=== PATIENT | male | born 1950 | race Caucasian/White ===

== ENCOUNTER → 2018-03-22 | Outpatient (CLI) | payer OTHER ==
[~2018-03-22] MED LIST: ASPCH81 PO; CARV6.25 PO; LISI-726 PO; LPT40 PO; METF1TAB53 PO; NTRSLP4 SL; PRLSR20 PO; SYM100 PO
--- NOTE | 2018-03-22 12:41 | DIAGNOSTIC IMAGING REPORT ---
VIDEO SWALLOW HISTORY: History of prior aspiration. Follow-up examination. DYSPHAGIA TECHNIQUE: Video fluoroscopic evaluation of swallowing was performed in the AP and lateral projections by the speech pathology staff. The patient is fed nectar-thick and thin liquid barium, a barium coated wafer, and barium pudding. FLUOROSCOPY TIME: 2 minutes. NUMBER OF FLUOROSCOPY IMAGES: 0 COMPARISON STUDY: 02/22/2018 FINDINGS: The patient was administered thin liquid barium via a teaspoon. There is no aspiration. When swallowing via cup, there was penetration but no evidence of aspiration. When swallowing nectar thick liquids, there is no aspiration. When swallowing pudding there is no evidence for aspiration. When swallowing a cracker with paste there was no evidence for aspiration. Note is made of esophageal dysmotility. IMPRESSION: 1. Improved swallowing mechanics. Episode of penetration but no evidence of aspiration. 2. Please see the speech pathologist report for detailed findings and recommendations. Electronically signed by: Jm Leos M.D. 03/22/2018 12:40 PM Dictated Date/Time: 03/22/2018 12:35 PM
--- NOTE | 2018-03-23 13:18 | SWALLOWING EVALUATION ---
HISTORY: This 67 year old man was referred for a video swallow study at [facility] in order to rule out aspiration and identify the safest consistencies for optimal oral intake. The patient participated in a previous video swallow study on 02/23/18 (please refer to full report for details) as an inpatient due to swallowing difficulties s/p cardiac arrest/code arctic. Mild oral and moderate pharyngeal stage dysphagia reported, with SILENT aspiration of thin liquids. A dental soft diet with nectar thick liquids was recommended, along with continued dysphagia therapy at acute rehab. 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 Current diet is dental soft and nectar thick liquids. PROCEDURE: The patient was seen in the Radiology Department of [facility] for the VFSS. Cursory examination of the oral cavity revealed the patient to have natural upper and lower dentition in good condition. Strength and ROM of the articulators was wnl. Patient is impulsive. The patient was seated upright on a stool and was viewed in the Lateral and the Anterior-Posterior (A-P) planes. Volitional phonation exercises completed in the A-P plane revealed bilateral vocal fold movement. Vocal intensity was wnl. In the lateral plane, the patient was given the following boluses: 1 tsp. thin liquid barium x 2, single swallow thin liquid barium self-presented from a cup x2, serial swallows of thin liquid barium self-presented via straw, 1 tsp. nectar-thick liquid barium, single swallow nectar-thick liquid barium self-presented from a cup, 1 tsp. barium pudding, and 1 club cracker coated in barium pudding. The patient was then repositioned into the A-P plane and given the following boluses: 1 tsp. nectar thick barium, and 1 tsp. barium pudding. RESULTS: Oral Stage: Lip closure was adequate. The patient was able to maintain a cohesive liquid bolus in the oral cavity during the liquid bolus hold task. Mastication was timely and efficient. Lingual motion for bolus transport was slowed. There was retention lining the tongue and palate after the initial swallow. The initiation of the pharyngeal swallow was delayed and occurred when the bolus head reached the valleculae. Pharyngeal Stage: Soft palate elevation was complete. Laryngeal elevation revealed partial superior movement of the thyroid cartilage and partial approximation of the arytenoids to the epiglottic base. Anterior hyoid excursion was partially reduced and epiglottic deflection was complete. Laryngeal vestibular closure was in-complete with a narrow column of contrast being located in the vestibule at the height of the swallow. The pharyngeal stripping wave was present and complete. Pharyngeal contraction was complete. There was partial distention and duration of the opening to the pharyngoesophageal segment (PES). Tongue base retraction was partially reduced with a narrow column of contrast located between the tongue base and pharyngeal wall during the swallow. There was mild retention located in the valleculae and pyriforms after the swallow. Significant improvement noted for this study. There was laryngeal penetration of thin liquids when taken via cup and straw. There was NO ASPIRATION evidenced with any consistency for the remainder of the study. Retention mostly cleared with a second swallow. Esophageal stage: There was retention in the mid esophagus with retrograde flow through the PES. A liquid wash assisted to clear this. All of the above are suggestive of esophageal dysmotility and reflux. SUMMARY/RECOMMENDATIONS: This patient presents with mild oropharyngeal dysphagia. He presents with s/s of esophageal dysfunction. The following is recommended: 1. Regular diet, moist. 2. Aspiration and GERD precautions: FULLY UPRIGHT for meals and for 30 minutes after meals; head of bed at least 30-degrees at all times. No straws. 3. Safe swallow strategies: Alternate solids and liquids. 4. Follow up with PCP. Consider a GI consultation for management for esophageal dysfunction (medication adjustments, further testing as needed) as appropriate. A summary of the results and recommendations was discussed with the patient immediately following the study with verbal understanding. Thank you for referral of this patient. Please contact me at if any additional information is needed.
== END | disposition home or self-care (01) ==
LOC: C.RAD 10:52
PROVIDERS: ATTEND Family Medicine
DX: R13.12 Dysphagia, oropharyngeal phase (principal)

== ENCOUNTER 2021-05-09 09:48 | Observation (INO) ==
[~2021-05-09 09:48] MED LIST changes: -ASPCH81 PO; -CARV6.25 PO; +LIDOCAINE 1% LOCAL 20 ML VIAL ONE; -LISI-726 PO; -LPT40 PO; -METF1TAB53 PO; -NTRSLP4 SL; -PRLSR20 PO; -SYM100 PO; +VANCOMYCIN HCL 1000MG/20ML VIAL ONE; +WATER, STERILE FOR INJ 10 ML VIAL ONE
[2021-05-09] MEDS ORDERED: BUPIVACAINE 0.25% 30 ML VIAL ONE (09:49)
[2021-05-09] MEDS ORDERED: MIDAZOLAM HCL 5 MG/ML 1 ML VIAL ONE (10:35)
[2021-05-09] MEDS ORDERED: fentaNYL citrate 100 MCG/2 ML VIAL ONE (10:35)
--- NOTE | 2021-05-09 10:36 | Pre Anesthesia Assessment ---
Date of Service May 09, 2021 Pre Sedation Assessment Vital Signs Temp Pulse Resp BP Pulse Ox 05/09/21 10:00 36.7 C 67 20 148/89 H 97 Cardiovascular + regular rate and + regular rhythm Respiratory + respiratory effort normal Pre-Sedation Airway Assessment Smoking Status: Former smoker Hx Sleep Apnea: No Hx Difficult Intubation: No Short, Thick Neck: No Thyromental Distance: > or= 3.5 Finger Breadths Oral Cavity: + WNL Mallampati Class: III ASA: ASA3 Procedure Planning Contraindications for Sedation: none Current Medications Reviewed: Yes Notes The planned sedation has been discussed with the patient. Informed Consent was obtained. I have identified the patient, determined the appropriateness of sedation and have assessed the patient immediately prior to the procedure. All medicine(s) and interventions are by my order.
--- NOTE | 2021-05-09 10:40 | History & Physical Report ---
Date of Service May 09, 2021 Assessment & Plan (1) Ischemic cardiomyopathy: Plan: Patient with NYHA class II sx and optimal medical therapy. Persistently low EF. No PA or revascularization in the past 90 days. Narrow complex QRS (No SENIOR LABEL SPECIALIST). No pacing indication. Plan single chamber ICD. Discussed with patient left versus right-sided implant. We decided Left was acceptable. History of Present Illness Chief Complaint: Cardiomyopathy Primary Care Provider: Dayday Mchugh Patient with a history of cardiac arrest and LAD infarct in 2018. Continues to have reduced LV function despite medical therapy. SOme symptoms of CHF (NYHA class II). Allergies Allergy/AdvReac Type Severity Reaction Status Date / Time No Known Allergies Allergy Unverified 02/13/18 00:52 Home Medications Medication Instructions Recorded Confirmed Type OMEPRAZOLE (PRILOSEC) 20 mg PO DAILY #0 cap 02/13/18 05/09/21 History ATORVASTATIN (LIPITOR) 1 tab PO DAILY #30 tab 02/24/18 05/09/21 Rx Aspirin (Aspirin Low Strength) 81 mg PO QAM #1 tab 02/24/18 05/09/21 Rx CARVEDILOL (COREG) 1 tab PO BID 30 Days #60 tab 02/24/18 05/09/21 Rx amlodipine 10 mg tablet 10 mg PO DAILY 05/09/21 05/09/21 History famotidine 20 mg tablet 20 mg PO DAILY 05/09/21 05/09/21 History furosemide 20 mg tablet 20 mg PO Q OTHER DAY 05/09/21 05/09/21 History glimepiride 1 mg tablet 1 mg PO BID 05/09/21 05/09/21 History omega-3 fatty acids 1,000 mg PO DAILY 05/09/21 05/09/21 History sacubitril 97 mg-valsartan 103 mg 1 tab PO BID 05/09/21 05/09/21 History tablet (Entresto) Past Med/Surg History Social History Smoking Status: Former smoker Hx Alcohol Use: No Hx Substance Use: No Beliefs That Will Affect Care: None Current Living Situation: Spouse Feels Safe at Home: Yes Safety Concerns: Feels Safe At This Time Assistive Devices: None Review of Systems Review of Systems: no recent f/c Physical Exam Physical Exam: Alert. Oriented. Answered questions appropriately Normal respiratory effort Regular rhythm Well-perfused Results & Data Results & Data ([facility]) Vital Signs (Past 12 Hours) Vital Signs Temp Pulse Resp BP Pulse Ox 05/09/21 10:00 36.7 C 67 20 148/89 H 97 Diagnostic Findings Echo , EF 30-35%
[2021-05-09] MEDS ORDERED: oxyCODONE HCL IR 5 MG TAB (IMMEDIATE RELEASE) PO PRN (11:23)
--- NOTE | 2021-05-09 11:23 | Post Anesthesia Assessment ---
Date of Service May 09, 2021 Post Sedation Assessment Vital Signs Temp Pulse Resp BP Pulse Ox 05/09/21 10:00 36.7 C 67 20 148/89 H 97 Recovery Score Activity: Moves 4 extremities Respiration: Deep Breath/Cough Circulation: +/-20% PreAnes Value Consciousness: Fully Awake Oxygen Saturation: > 92% On Room Air Discharge Sedation Level of Care: Fast Track Phase II Post Sedation Plan On clinical assessment, the patient appears to have tolerated the sedation without complications. Patient is recovering as anticipated. Patient will continue to be monitored by nursing and may be discharged when sedation discharge criteria are met per below protocol. Upon Completions of procedure up to 15 minutes continue every 5 minute vital signs and the P.A.R. score; then discharge to a Phase I or Fast Track to Phase II per the following guidelines: * Discharge Patient to appropriate Phase II area if PAR is 8 or greater or return to pre- procedure baseline. The post - procedure orders will be as directed. * If PAR score is less than 8 or not return to pre-procedure baseline then patient will follow Phase I monitoring till PAR is reached for Phase II. The Phase I may be done in procedure room or may call to secure a Phase I area. * If naloxone or flumazenil are used for reversal, hold in Phase I for continued monitoring from when last reversal dose was given for a minimum of 60 minutes or longer pending the nurse and/or physician discretion of patient condition before discharge to Phase II. Please call the Sedation Physician to re-evaluate and complete post-note for discharge to Phase II area. Do NOT discharge from procedure sedation or Phase 1 until post- sedation evaluation note is complete by procedure /sedation MD Sedation Discharge Instructions to be given to the patient at discharge to home.
--- NOTE | 2021-05-09 11:23 | Electrophysiology Report ---
Date of Service May 09, 2021 Electrophysiology Procedure Electrophysiology Procedure Report Procedure performed: Implantation of single-chamber ICD Staff cask maker: Matheus Rangel MD Indication: The patient is a 70-year-old gentleman with a history of an ischemic cardiomyopathy and persistently low ejection fraction less than 35%. He has [place] Heart [employer] class II symptoms. Has not had revascularization in the last 90 days nor suffered a myocardial infarction in the past 40 days. He has an anticipated longevity greater than 1 year and is on optimal medical therapy. He was therefore thought to be a good candidate for ICD as primary prevention against sudden cardiac . Procedure in detail: The patient was informed of the risks benefits and alternatives to the intended procedure and she wished to proceed. He was taken to the electrophysiology s uite in a fasting state. A preoperative antibiotic had been administered. The patient was monitored electrocardiographically throughout today's procedure and conscious sedation was administered per protocol. The left upper pectoral area is prepped and draped in usual sterile fashion. This area was anesthetized using subcutaneous administration of a xylocaine solution. An incision was made at t his site and carried down to the prepectoralis fascia using sharp dissection. Electrocautery was also employed for dissection as well as for hemostasis. A device pocket was fashioned tissues above the pectoralis muscle. Subsequent to this maneuver the left axillary vein was accessed using modified Seldinger technique. A sheath was placed over a guidewire at this site and used to facilitate passage of the pacing lead to the right ventricular apex under fluoroscopic guidance. Adequate sensing and threshold parameters were obtained prior to Active fixation of the lead to the endocardial surface. The proximal portion of the lead was then sutured the prepectoral fascia using nonabsorbable suture. The device pocket was irrigated with antibiotic solution. The lead was then attached to the device. The device and lead were then placed in the pocket and pocket was closed in 3 layers of absorbable suture. Steri-Strips and sterile dressing were applied. The device was tested noninvasively prior to conclusion the procedure. The patient tolerated procedure well there no immediate complications. Equipment used: New pulse generator: Women'S Studies Lecturer Fanmode. Model number: [id number] [id number] Right ventricular lead: Women'S Studies Lecturer MedDomee. Model number: [id number] serial number [id number] Measured data: Right ventricular lead: R waves measured 13.8 mV. Pacing threshold was 0.8 V at 0.5 ms with a pacing impedance of 722 ohms Impression: Successful implantation of single-chamber ICD MNPG Electrophysiology codes ICD Procedure 1: ICD: 84715 Insert single or dual ICD system PG Moderate Sedation Codes Moderate Sedation Codes Procedure 1: Sedation/Anesthesia: 25824 Mod Sedation by the same physician;Init15 Min Child Age 5 & Up Procedure 2: Sedation/Anesthesia: 38840 Mod Sedation by the same physician; Ea [id number] Minutes
[2021-05-09] MEDS: ceFAZolin 1000MG 1,000 MG/7.5 ML SYR IV SCH (19:34)
[2021-05-09] MEDS: SACUBITRIL-VALSARTAN 97-103 MG TAB PO SCH (21:28)
[2021-05-09] MEDS: GLIMEPIRIDE 2 MG TAB PO SCH (21:28)
[2021-05-09] MEDS: carvediloL 6.25 MG TAB PO SCH (21:28)
[2021-05-09] MEDS: ACETAMINOPHEN 325 MG TAB PO PRN (23:04)
[2021-05-10] MEDS: ceFAZolin 1000MG 1,000 MG/7.5 ML SYR IV SCH (03:58)
[2021-05-10] MEDS ORDERED: FAMOTIDINE 20 MG TAB PO SCH (09:00)
[2021-05-10] MEDS ORDERED: amLODIPine BESYLATE 5 MG TAB PO SCH (09:00)
[2021-05-10] MEDS ORDERED: OMEGA-3 (PURIFIED FISH OIL) 1 GM CAP PO SCH (09:00)
[2021-05-10] MEDS ORDERED: PANTOprazole 40 MG TAB PO SCH (09:00)
[2021-05-10] MEDS ORDERED: ATORVASTATIN 40 MG TAB PO SCH (09:00)
[2021-05-10] MEDS ORDERED: ASPIRIN 81 MG ECTAB PO SCH (09:00)
[2021-05-10] MEDS: GLIMEPIRIDE 2 MG TAB PO SCH (09:13)
[2021-05-10] MEDS: carvediloL 6.25 MG TAB PO SCH (09:14)
[2021-05-10] MEDS: SACUBITRIL-VALSARTAN 97-103 MG TAB PO SCH (09:14)
--- NOTE | 2021-05-10 09:15 | XRay Report ---
XR chest 2V PA/lateral HISTORY: 70 years-old Male EXACT TIME ORDERED Evaluate for pneumothorax and l status post placement of a left subclavian pacer COMPARISON: Chest radiographs 08/15/2019 TECHNIQUE: PA and lateral views of the chest FINDINGS: Cardiomediastinal and hilar silhouettes are within normal limits. Single lead left subclavian pacer/A ICD. No pneumothorax, pleural effusion or overt pulmonary edema. Minimal chronic interstitial coarsen ing is similar to comparison. Surgical clips project over the upper abdomen. Degenerative changes of the shoulders and spine. IMPRESSION: Status post placement of a left subclavian AICD. No postprocedural pneumothorax. ACT 112: Negative or not required by law. The above report was generated using voice recognition software. It may contain grammatical, syntax o r spelling errors. Electronically signed by: Jun Maharaj M.D. 05/10/2021 9:14 AM
[2021-05-10] MEDS: ACETAMINOPHEN 325 MG TAB PO PRN (09:22)
--- NOTE | 2021-05-10 11:11 | Discharge Summary ---
Date of Service May 10, 2021 Admission HPI Per Admitting Provider Patient with a history of cardiac arrest and LAD infarct in 2018. Continues to have reduced LV function despite medical therapy. SOme symptoms of CHF (NYHA class II). Principal Diagnosis cardiomyopathy Discharge Data Allergies Allergy/AdvReac Type Severity Reaction Status Date / Time No Known Allergies Allergy Unverified 02/13/18 00:52 Procedures Performed Operation Date: 05/09/21 11:00 Actual Procedures p ICD Insertion Single or Dual - Everett Rangel MD Ordered Studies 05/09/21 07:08 CL Cath Imgs for PACS use only Routine Hospital Course (1) Ischemic cardiomyopathy: on the day of admission the patient underwent implantation of a single- chamber Medtronic ICD. The procedure was uncomplicated. The following morning device interrogation revealed normal function of the lead and device. Chest x- ray demonstrated good lead position without evidence of pneumothorax. Total Time Total Time Spent Total Time Spent (In Minutes): 20 Discharge Plan Discharge Items Patient Disposition: Home - Self-Care Reason For Visit: Ischemic Cardiomyopathy Discharge Diagnosis: cardiomyopathy Condition on Discharge: Good Activity: Per Instructions section Activity Comment: No lifting left arm above shoulder behind neck for 6 weeks Lifting: No more than 10 pounds Bathing: Keep incision dry Bathing Comment: Keep wound dry Steri-Strips intact for 7 days Driving/Machine Use: Resume 1 day after discharge Non-emergency contact: Corner Former Call non-emergency contact if: you have any medication questions, your pain is worsening, you have a fever, your wound has increased redness and your wound has increased drainage Follow-up/Referrals: Dayday Mchugh, D.O. [Primary Care Provider] - 05/15/21 2:00 pm Diet: Carb Consistent or DM2 and Heart Healthy Addtl Attending Provider Instructions: None Pending Studies at Discharge: No Stand-Alone Forms: My [facility], Smoking Cessation Medications and DC Order Prescriptions: Continued OMEPRAZOLE (PRILOSEC) 20 MG CONTR REL CAP 20 mg PO DAILY Qty: 0 RF: 0 ATORVASTATIN (LIPITOR) 40 MG tablet 1 tab PO DAILY Qty: 30 RF: 0 Aspirin (Aspirin Low Strength) 81 MG CHEWABLE TAB 81 mg PO QAM Qty: 1 RF: 0 CARVEDILOL (COREG) 6.25 MG tablet 1 tab PO BID 30 Days Qty: 60 RF: 5 glimepiride 1 mg Tablet 1 mg PO BID RF: 0 famotidine 20 mg Tablet 20 mg PO DAILY RF: 0 amlodipine 10 mg Tablet 10 mg PO DAILY RF: 0 furosemide 20 mg Tablet 20 mg PO Q OTHER DAY RF: 0 omega-3 fatty acids Capsule 1,000 mg PO DAILY RF: 0 Entresto 97-103 mg Tablet 1 tab PO BID RF: 0 Discharge Orders: Discharge Order (Routine); Ordered 05/10/21 Ordered By: Everett Rangel Admission Data Admit Date/Time: 05/09/21 11:19 Attending Provider: Everett Rangel Admit Provider: Everett Rangel Primary Care Provider: Dayday Mchugh Other Interventions: Discharge Summary Assessment (RN) Last Done: 05/10/21 10:40 Coding Level of Care Code 62338 OBS Care - Discharge Diagnoses Ischemic cardiomyopathy I25.5
[2021-05-11] MEDS ORDERED: FUROSEMIDE 20 MG TAB PO SCH (09:00)
== END 2021-05-10 11:30 | disposition home or self-care (01) ==
LOC: EP 09:48 → 1E 09:48
PROC: EPB.ICD (2021-05-09 11:00)

== ENCOUNTER 2025-03-24 06:35 | Inpatient (IN) ==
--- NOTE | 2025-03-24 06:59 | Emergency Department Note ---
Impression & Plan Pain and swelling of right lower leg, Calf pain ED Provider Note NAME: JULIETA WALTON AGE: 74 SEX: M : 1950 ARRIVES VIA: Walk-In INFORMANT: Patient ED PROVIDER(S): Saran Mcmillan DO CHIEF COMPLAINT: Right calf pain HPI: Patient is a 74-year-old male with a past medical history of ischemic cardiomyopathy, diabetes and vocal cord dysfunction who presents to the ER for right calf pain. He notes this initially started on Thursday. He was seen evaluated and had ultrasounds done and placed on Eliquis on Thursday. He has been taking 5 mg twice a day. He notes he has a severe increase in pain. He has been sitting up in bed keeping it elevated. He has been able to walk. He notes it is very tight. Severe pain from the knee down posteriorly. He admits to tingling. ADDITIONAL HISTORY OBTAINED: Per HPI Chronic Medical/Social Conditions Affecting Care: Per HPI PAST MEDICAL HISTORY:See Below PAST SURGICAL HISTORY:See Below FAMILY HISTORY:See Below SOCIAL HISTORY:See Below HOME MEDICATIONS:See Below ALLERGIES:See Below VITALS:See Below PHYSICAL EXAMINATION: GENERAL: Sitting up in bed, alert, well appearing, well nourished, no distress, non-toxic EYE EXAM: normal conjunctiva. OROPHARYNX: no exudate, no erythema, lips, buccal mucosa, and tongue normal and mucous membranes are moist NECK: supple, no nuchal rigidity, no adenopathy, non-tender LUNGS: Clear to auscultation. Normal chest wall mechanics HEART: no murmurs, S1 normal and S2 normal ABDOMEN: abdomen soft, non-tender, normo-active bowel sounds, no masses, no rebound or guarding. UPPER EXTREMITIES: upper extremities are grossly normal. LOWER EXTREMITIES: Flexion-extension right hip is intact. Severe pain with minimal flexion/extension of the knee and the calf. DP and PT difficult to appreciate with significant mount of swelling. Calf and foot are edematous and taut. NEURO EXAM: Normal sensorium, cranial nerves II-XII grossly intact, normal speech, no gross weakness of arms, no gross weakness of legs. MEDICAL DECISION MAKING: Patient is a 74-year-old male who presents ER for above-stated complaint. IV was established blood work was obtained. Labs show no significant leukocytosis or anemia. BMP with a creatinine of 1.6. LFTs and bilirubin is unremarkable. CK at 123. On exam he has a very taut calf and severe pain with faint plantar dorsiflexion. Unable to appreciate DPs and PTs. He does have paresthesias. Ultrasound was obtained and suggested either a ruptured popliteal cyst or hematoma. Unable to visualize the clot and I discussed these findings with Dr. Mcdowell. I discussed with Dr. Santiago from orthopedics and patient was evaluated by Antolin ROQUE as there was concern for compartment syndrome. they do not feel this consistent with compartment syndrome. I then discussed case with the hospitalist for admission. Ortho did note that blood thinner could be stopped at this time. Patient has not taken any Eliquis today. Patient was given several doses of morphine. Discussed case with hospitalist for further evaluation management treatment. Arterial ultrasound was done several hours later and did so some diminished flow through the [employer]. This was done after the patient was already admitted. Consults/Care Managements Discussions: Per [facility] Triage Nursing notes reviewed. Limited review of prior medical records performed Vital Signs: reviewed and remarkable for no significant abnormalities Differential diagnosis: DVT, musculoskeletal, infection, joint effusion, trauma, lymphedema, idiopathic, CHF, as well as other pathologies. ER treatment provided: See below Diagnostics interpreted by me include EKG and cardiac monitoring as listed below: -ECG: none -Laboratory studies:Interpreted by me as stated above in MDM and shown below. Imaging studies: Xrays: As interpreted by me:none CTs show: None Ultrasound as described above Procedures:none Critical Care: None Past Med/Surg History Problem List (Updated 03/24/25 @ 12:51 by Saran Mcmillan DO) Calf pain (Acute) Pain and swelling of right lower leg (Acute) Ischemic cardiomyopathy Diabetes mellitus (Chronic) Palliative care encounter Vocal cord dysfunction "Evaluation by Dr. Taylor 02/20/2018" Social History Smoking Status: Former smoker Hx Alcohol Use: No Hx Substance Use: No Preferred Language: Hungarian Beliefs That Will Affect Care: None Current Living Situation: Spouse Feels Safe at Home: Yes Assistive Devices: None Allergies Allergies Allergy/AdvReac Type Severity Reaction Status Date / Time No Known Allergies Allergy Unverified 03/24/25 10:33 Home Meds Home Medications Medication Instructions Recorded Confirmed amlodipine 10 mg tablet 10 mg PO DAILY 05/09/21 03/24/25 famotidine 20 mg tablet 20 mg PO DAILY 05/09/21 03/24/25 furosemide 20 mg tablet 20 mg PO [id number] 05/09/21 03/24/25 glimepiride 1 mg tablet 1 mg PO DAILY 05/09/21 03/24/25 sacubitril 97 mg-valsartan 103 mg 1 tab PO BID 05/09/21 03/24/25 tablet (Entresto) apixaban 5 mg tablet (Eliquis) 5 mg PO BID 03/24/25 03/24/25 aspirin 81 mg tablet,delayed 81 mg PO DAILY 03/24/25 03/24/25 release atorvastatin 40 mg tablet 40 mg PO DAILY 03/24/25 03/24/25 carvedilol 12.5 mg tablet 12.5 mg PO BID 03/24/25 03/24/25 dapagliflozin propanediol 10 mg 10 mg PO DAILY 03/24/25 03/24/25 tablet (Farxiga) omega 9-ncs-jdd-fish oil 900 1 cap PO DAILY 03/24/25 03/24/25 mg-1,400 mg capsule,delayed release pantoprazole 40 mg tablet,delayed 40 mg PO DAILY 03/24/25 03/24/25 release semaglutide 7 mg tablet (Rybelsus) 7 mg PO DAILY 03/24/25 03/24/25 tramadol 50 mg tablet 50 - 100 mg PO Q6H PRN Pain 03/24/25 03/24/25 Results & Data (ED) Vital Signs Vital Signs - 24 hr 03/24/25 06:42 03/24/25 07:21 03/24/25 07:24 Temperature 36.5 C Temperature Source Temporal Artery Scan Pulse Rate 78 72 Pulse Rate from SpO2 Sensor Respiratory Rate 20 18 Respiratory Depth Normal Blood Pressure 114/81 153/90 H Blood Pressure Mean 92 112 Pulse Oximetry 95 Oxygen Delivery Method Room Air Sepsis Recent Fever Within 48 Hours No Sepsis New/Unexplained Change in Mental Status N/A Sepsis Action Taken by Nursing No Action Required 03/24/25 07:30 03/24/25 07:48 03/24/25 08:00 Temperature Temperature Source Pulse Rate 68 Pulse Rate from SpO2 Sensor 68 Respiratory Rate Respiratory Depth Blood Pressure 124/68 146/84 H Blood Pressure Mean 77 109 Pulse Oximetry 90 Oxygen Delivery Method Room Air Sepsis Recent Fever Within 48 Hours Sepsis New/Unexplained Change in Mental Status Sepsis Action Taken by Nursing 03/24/25 08:03 03/24/25 08:10 03/24/25 08:18 Temperature Temperature Source Pulse Rate 67 68 65 Pulse Rate from SpO2 Sensor 67 65 Respiratory Rate 12 14 Respiratory Depth Blood Pressure Blood Pressure Mean Pulse Oximetry 91 91 Oxygen Delivery Method Room Air Room Air Sepsis Recent Fever Within 48 Hours Sepsis New/Unexplained Change in Mental Status Sepsis Action Taken by Nursing 03/24/25 08:30 03/24/25 08:45 03/24/25 08:48 Temperature Temperature Source Pulse Rate 65 65 Pulse Rate from SpO2 Sensor 65 64 Respiratory Rate 12 Respiratory Depth Blood Pressure 159/93 H Blood Pressure Mean 112 Pulse Oximetry 93 94 Oxygen Delivery Method Room Air Room Air Sepsis Recent Fever Within 48 Hours Sepsis New/Unexplained Change in Mental Status Sepsis Action Taken by Nursing 03/24/25 09:00 03/24/25 09:03 03/24/25 09:24 Temperature Temperature Source Pulse Rate 64 67 Pulse Rate from SpO2 Sensor 58 L 67 Respiratory Rate 12 16 Respiratory Depth Blood Pressure 141/83 H Blood Pressure Mean 95 Pulse Oximetry 92 95 Oxygen Delivery Method Room Air Room Air Sepsis Recent Fever Within 48 Hours Sepsis New/Unexplained Change in Mental Status Sepsis Action Taken by Nursing 03/24/25 09:30 03/24/25 09:33 03/24/25 10:18 Temperature Temperature Source Pulse Rate 66 70 Pulse Rate from SpO2 Sensor 66 Respiratory Rate 15 21 Respiratory Depth Blood Pressure 153/90 H Blood Pressure Mean 120 Pulse Oximetry 95 Oxygen Delivery Method Room Air Sepsis Recent Fever Within 48 Hours Sepsis New/Unexplained Change in Mental Status Sepsis Action Taken by Nursing 03/24/25 10:33 03/24/25 12:17 Temperature Temperature Source Pulse Rate 72 65 Pulse Rate from SpO2 Sensor Respiratory Rate 20 Respiratory Depth Blood Pressure Blood Pressure Mean Pulse Oximetry Oxygen Delivery Method Sepsis Recent Fever Within 48 Hours Sepsis New/Unexplained Change in Mental Status Sepsis Action Taken by Nursing Laboratory Data 03/24/25 07:23 03/24/25 07:23 Lab Results 03/24/25 Range/Units 07:23 WBC 8.76 (4.8-10.8) K/ul RBC 4.49 L (4.70-6.10) M/uL Hgb 13.8 L (14.0-18.0) g/dl Hct 40.1 L (42.0-52.0) % MCV 89.3 (80.0-100.0) fL MCH 30.7 (25.0-34.0) pg MCHC 34.4 (32.0-36.0) g/dL RDW Std Deviation 40.2 (36.4-46.3) fL RDW Coeff of Jeff 12.2 (11.5-14.5) % Plt Count 154 (130-400) K/uL MPV 10.2 (9.4-12.4) fL Immature Gran % (Auto) 0.6 % Neut % (Auto) 77.8 % Lymph % (Auto) 9.8 % [place] % (Auto) 11.2 % Eos % (Auto) 0.3 % Baso % (Auto) 0.3 % Neut # (Auto) 6.81 H (1.40-6.50) K/uL Lymph # (Auto) 0.86 L (1.20-3.40) K/uL [place] # (Auto) 0.98 H (0.11-0.59) K/uL Eos # (Auto) 0.03 (0.00-0.50) K/uL Baso # (Auto) 0.03 (0.00-0.20) K/uL Immature Gran # (Auto) 0.05 (0.01-0.20) K/uL Sodium 138 (136-145) mmol/L Potassium 4.2 (3.5-5.1) mmol/L Chloride 106 (98-107) mmol/L Carbon Dioxide 23 (21-32) mmol/L Anion Gap 9 (3-11) BUN 26 H (6-23) mg/dl Creatinine 1.66 H (0.6-1.4) mg/dl Est Cr Clr Drug Dosing 49.4 ml/min eGFR 43.53 BUN/Creatinine Ratio 15.7 (10-20) Glucose 161 H (70-99(Fasting)) mg/dl Calcium 8.9 (8.6-10.3) mg/dl Total Bilirubin 0.8 (0.2-1.0) mg/dl AST 15 (13-39) U/L ALT 14 (7-52) U/L Alkaline Phosphatase 68 (34-104) U/L Total Creatine Kinase 123 (30-223) U/L Total Protein 6.7 (6.0-8.3) gm/dl Albumin 3.6 (3.4-5.0) gm/dl Globulin 3.1 (2.5-4.0) gm/dl Albumin/Globulin Ratio 1.2 (0.9-2) Administered Medications Discontinued Medications Morphine Sulfate (Morphine Sulfate 4 Mg/Ml 1 Ml Carp\\Vial) 3 mg IV NOW STA Stop: 03/24/25 07:00 Last Admin: 03/24/25 07:24 Dose: 3 mg Documented By: RUDI Morphine Sulfate (Morphine Sulfate 4 Mg/Ml 1 Ml Carp\\Vial) 4 mg IV NOW STA Stop: 03/24/25 10:27 Last Admin: 03/24/25 11:02 Dose: 4 mg Documented By: RUDI Imaging Data Radiologist's Impression: Duplex Scan Lower Extremity Artery 03/24/25 06:58 RIGHT LOWER EXTREMITY ARTERIAL DOPPLER ULTRASOUND CLINICAL HISTORY: Severe pain and swelling. COMPARISON STUDY: Right lower extremity venous Doppler ultrasound March 20, 2025. TECHNIQUE: Color and duplex Doppler sonography of the arterial system of the right lower extremity was performed. FINDINGS: There is triphasic flow within the right common femoral, superficial femoral and popliteal veins. Of note, there is monophasic flow with apparent reversal of diastolic flow within the proximal right posterior tibial artery. There is also monophasic flow within the right peroneal artery. There is triphasic flow within the distal right posterior tibial artery. There is biphasic flow within the right anterior tibial and dorsalis pedis vessels. The largest right calf fluid collection is depicted on the venous exam which will be reported separately. No elevated velocities were identified. IMPRESSION: Patent right lower extremity vessels. However, monophasic flow with absent/reversed diastolic flow within portions of the right posterior tibial and peroneal arteries. This vascular finding is nonspecific although could be related to the large right calf hematoma and could be seen in setting of compartment syndrome. Clinical correlation is recommended. ACT 112: Negative or not required by law. Electronically signed by: Higinio Mcdowell M.D. 03/24/2025 12:02 PM Venous Doppler Study 03/24/25 06:58 RIGHT LOWER EXTREMITY VENOUS DOPPLER CLINICAL HISTORY: Right lower extremity pain. COMPARISON STUDY: Right lower extremity venous Doppler ultrasound March 20, 2025. TECHNIQUE: Sonography of the deep venous system of the right lower extremity was performed. Compression and augmentation were evaluated. FINDINGS: The right common femoral, superficial femoral and popliteal veins were compressible. Augmentation was normal. Flow was shown within the deep calf vessels. No superficial thrombus is identified within the right lower extremity. Note is now made of a large complex hypoechoic fluid collection of the right calf which extends from the level of the knee to ankle, measuring 20 x 4 x 9 cm. This hematoma was not evident on prior ultrasound. A popliteal cyst was shown on prior study. IMPRESSION: 1. No evidence of deep venous thrombus within the right lower extremity. 2. Large complex fluid collection of the right calf, measuring 20 x 4 x 9 cm, which has developed since prior exam. This is consistent with a hematoma or hemorrhage within a popliteal cyst, possibly ruptured. Findings discussed with Dr. Mcmillan at time of dictation. This could be correlated with clinical evidence for compartment syndrome. ACT 112: Negative or not required by law. Electronically signed by: Higinio Mcdowell M.D. 03/24/2025 10:14 AM Discharge Plan Visit Data Chief Complaint: Swelling/Edema to Extremity Stated Complaint: leg swelling and vein pain ED Provider: Saran Mcmillan Discharge Problem: Pain and swelling of right lower leg, Calf pain Condition: Fair Prescriptions Prescriptions: No Action glimepiride 1 mg Tablet 1 mg PO DAILY famotidine 20 mg Tablet 20 mg PO DAILY amlodipine 10 mg Tablet 10 mg PO DAILY furosemide 20 mg Tablet 20 mg PO [id number] Patient Comments: Mon/Thu/Thu Rx Instructions: Mon/Thu/Fri Entresto 97-103 mg Tablet 1 tab PO BID atorvastatin 40 mg tablet 40 mg PO DAILY carvedilol 12.5 mg tablet 12.5 mg PO BID aspirin 81 mg Tablet,Delayed Release (Dr/Ec) 81 mg PO DAILY tramadol 50 mg tablet 50 - 100 mg PO Q6H PRN (Reason: Pain) pantoprazole 40 mg tablet,delayed release (DR/EC) 40 mg PO DAILY [place] 3 Fish Oil 900-1,400 mg Capsule,Delayed Release(Dr/Ec) 1 cap PO DAILY Eliquis 5 mg tablet 5 mg PO BID dapagliflozin propanediol [Farxiga] 10 mg tablet 10 mg PO DAILY Rybelsus 7 mg tablet 7 mg PO DAILY Discharge Problem: Calf pain Qualifiers: Laterality: right Qualified Code(s): M79.661 - Pain in right lower leg
[2025-03-24] MEDS: MoRPHine SULFATE 4 MG/ML 1 ML CARP\\VIAL IV STA ×2 (07:24→11:02)
[2025-03-24 07:36] LABS: Hematocrit (blood only) 40.1 % (42.0-52.0); Hemoglobin 13.8 g/dl (14.0-18.0); Immature Granulocytes # (auto) 0.05 K/uL (0.01-0.20); Immature Granulocytes % (auto) 0.6 %; Mean Corpuscular Hemoglobin 30.7 pg (25.0-34.0); Mean Corpuscular Volume 89.3 fL (80.0-100.0); Platelet Count 154 K/uL (130-400); RDW Standard Deviation 40.2 fL (36.4-46.3); Red Blood Count 4.49 M/uL (4.70-6.10); White Blood Count 8.76 K/ul (4.8-10.8)
[2025-03-24 07:55] LABS: Alanine Aminotransferase 14.0 U/L (7-52); Albumin Globulin Ratio 1.2 (0.9-2); Alkaline Phosphatase 68.0 U/L (34-104); Anion Gap 9.0 (3-11); Bilirubin,Total 0.8 mg/dl (0.2-1.0); Blood Urea Nitrogen 26.0 mg/dl (6-23); Calcium 8.9 mg/dl (8.6-10.3); Carbon Dioxide 23.0 mmol/L (21-32); Chloride 106.0 mmol/L (98-107); Creatine Kinase 123.0 U/L (30-223); Creatinine Clr Calc Pharmacy 49.4 ml/min; Globulin 3.1 gm/dl (2.5-4.0); Glucose 161.0 mg/dl (70-99(Fasting)); Potassium 4.2 mmol/L (3.5-5.1); Sodium 138.0 mmol/L (136-145); Total Protein 6.7 gm/dl (6.0-8.3)
--- NOTE | 2025-03-24 10:17 | Ultrasound Report ---
RIGHT LOWER EXTREMITY VENOUS DOPPLER CLINICAL HISTORY: Right lower extremity pain. COMPARISON STUDY: Right lower extremity venous Doppler ultrasound March 20, 2025. TECHNIQUE: Sonography of the deep venous system of the right lower extremity was performed. Compress ion and augmentation were evaluated. FINDINGS: The right common femoral, superficial femoral and popliteal veins were compressible. Augme ntation was normal. Flow was shown within the deep calf vessels. No superficial thrombus is identifie d within the right lower extremity. Note is now made of a large complex hypoechoic fluid collection o f the right calf which extends from the level of the knee to ankle, measuring 20 x 4 x 9 cm. This hem atoma was not evident on prior ultrasound. A popliteal cyst was shown on prior study. IMPRESSION: 1. No evidence of deep venous thrombus within the right lower extremity. 2. Large complex fluid collection of the right calf, measuring 20 x 4 x 9 cm, which has developed sin ce prior exam. This is consistent with a hematoma or hemorrhage within a popliteal cyst, possibly rup tured. Findings discussed with Dr. Mcmillan at time of dictation. This could be correlated with clinica l evidence for compartment syndrome. ACT 112: Negative or not required by law. Electronically signed by: Higinio Mcdowell M.D. 03/24/2025 10:14 AM
--- NOTE | 2025-03-24 11:49 | History & Physical Report ---
Date of Service March 24, 2025 Assessment & Plan (1) Calf pain: (2) Pain and swelling of right lower leg: (3) Ischemic cardiomyopathy: (4) Diabetes mellitus: (5) Palliative care encounter: (6) Vocal cord dysfunction: (7) Hematoma of right lower leg: Plan This is a 74-year-old male with a history of coronary artery disease status post LAD stents, ischemic cardiomyopathy status post AICD, [id number] diabetes mellitus type 2, hypertension, hyperlipidemia, single right kidney who presents with right calf pain. He was diagnosed with a right superficial vein thrombosis, no DVT and was started on Eliquis 2 days ago. He comes back with increasing pain and swelling. Today's ultrasound shows a large complex fluid collection of the right calf, likely hematoma. #Right calf hematoma in the setting of being on Eliquis Hold Eliquis Possibility of compartment syndrome is being entertained. Orthopedics consulted who was less concerned for acute compartment syndrome as the patient had no pain with passive stretch. Consult orthopedics Treat pain Elevate right leg and ice Repeat venous ultrasound was assuring for no DVT Arterial ultrasound report reviewed. Juventino longed orthopedics team to review the ultrasound report #Coronary artery disease status post LAD stents Continue Coreg Hold Lasix as his mucous membranes are dry Hold Farxiga, semaglutide, Lipitor #Single right kidney Per patient, creatinine is at baseline Patient has slightly dry mucous membranes Will hydrate gently #GERD continue Protonix #Diabetes mellitus type 2 Start sliding scale insulin History of Present Illness Chief Complaint: Right calf pain Primary Care Provider: Dayday Mchugh This is a 74-year-old male with history of LAD infarct in 2018 with cardiac arrest, ischemic cardiomyopathy status post AICD in 2020, diabetes mellitus type 2, hypertension, hyperlipidemia, renal cancer status post left nephrectomy, GERD who presents to the ER with right calf pain The patient stated that his pain started 6 days ago. 4 days ago, he was evaluated by Dr. Caruso who ordered an ultrasound of his right leg. The ultrasound was done 2 days ago and had showed no DVT but a superficial vein thrombosis. He asked him to speak to his PCP. His PCP started him on Eliquis which he has been taking since Thursday. He came to the ER today because his pain got worse and the swelling got worse as well. Today he had a repeat ultrasound done of his right lower extremity that showed a hematoma/hemorrhage possibly from popliteal cyst rupture. The ED physician consulted orthopedics due to concerns of compartment syndrome. Orthopedics ruled out compartment syndrome and requested that the patient be admitted for observation and pain management. Screening tests show stable H&H, mild elevated creatinine of 1.6 (patient says his baseline creatinine is between 1.5-1.6). Venous duplex ultrasound shows a l arge complex fluid collection of the right calf, measuring 20 x 4 x 9 cm, consistent with hematoma or hemorrhage within a popliteal cyst, possibly ruptured. Allergies Allergy/AdvReac Type Severity Reaction Status Date / Time No Known Allergies Allergy Unverified 03/24/25 10:33 Home Medications Medication Instructions Recorded Confirmed Type amlodipine 10 mg tablet 10 mg PO DAILY 05/09/21 03/24/25 History famotidine 20 mg tablet 20 mg PO DAILY 05/09/21 03/24/25 History furosemide 20 mg tablet 20 mg PO 3XWK 05/09/21 03/24/25 History glimepiride 1 mg tablet 1 mg PO DAILY 05/09/21 03/24/25 History sacubitril 97 mg-valsartan 103 mg 1 tab PO BID 05/09/21 03/24/25 History tablet (Entresto) apixaban 5 mg tablet (Eliquis) 5 mg PO BID 03/24/25 03/24/25 History aspirin 81 mg tablet,delayed 81 mg PO DAILY 03/24/25 03/24/25 History release atorvastatin 40 mg tablet 40 mg PO DAILY 03/24/25 03/24/25 History carvedilol 12.5 mg tablet 12.5 mg PO BID 03/24/25 03/24/25 History dapagliflozin propanediol 10 mg 10 mg PO DAILY 03/24/25 03/24/25 History tablet (Farxiga) omega 0-alp-ewi-fish oil 900 1 cap PO DAILY 03/24/25 03/24/25 History mg-1,400 mg capsule,delayed release pantoprazole 40 mg tablet,delayed 40 mg PO DAILY 03/24/25 03/24/25 History release semaglutide 7 mg tablet (Rybelsus) 7 mg PO DAILY 03/24/25 03/24/25 History tramadol 50 mg tablet 50 - 100 mg PO Q6H PRN Pain 07/25/25 07/25/25 History Past Med/Surg History Problem List (Updated 03/24/25 @ 14:36 by Julienne Harrell MD) Hematoma of right lower leg Calf pain (Acute) Pain and swelling of right lower leg (Acute) Ischemic cardiomyopathy Diabetes mellitus (Chronic) Palliative care encounter Vocal cord dysfunction "Evaluation by Dr. Taylor 02/20/2018" Social History Smoking Status: Former smoker Second Hand Exposure: No; Do You Dip or Chew Tobacco: No; Tobacco Cessation Education Requested by Patient: No Hx Alcohol Use: Yes Alcohol type: beer Hx Substance Use: No Preferred Language: D[employer] [employer] Education Consultant Required: No Beliefs That Will Affect Care: None Current Living Situation: Spouse Other Information That Helps Us Care for You: No Feels Safe at Home: Yes Safety Concerns: Feels Safe At This Time Assistive Devices: None Review of Systems Review of Systems: All systems reviewed & are unremarkable except as noted in HPI & below Physical Exam Physical Exam: General: Awake, conversant. Dry mucous membranes Heart: S1, S2/regular rate and rhythm, no murmur rubs or gallops Lungs: Clear to auscultation bilaterally. Normal effort Abdomen: Soft/nontender/nondistended. No hepatosplenomegaly Extremities: No clubbing/cyanosis. Right calf swelling and pain. Right ankle swelling as well. Behavior: Appropriate, cooperative Results & Data Results & Data Vital Signs (Past 12 Hours) Vital Signs Temp Pulse Resp BP Pulse Ox O2 Del Method 03/24/25 10:33 72 20 03/24/25 10:18 70 21 03/24/25 09:33 66 15 95 Room Air 03/24/25 09:30 153/90 H 03/24/25 09:24 67 16 95 Room Air 03/24/25 09:03 64 12 92 Room Air 03/24/25 09:00 141/83 H 03/24/25 08:48 65 12 94 Room Air 03/24/25 08:45 65 93 Room Air 03/24/25 08:30 159/93 H 03/24/25 08:18 65 14 91 Room Air 03/24/25 08:10 68 03/24/25 08:03 67 12 91 Room Air 03/24/25 08:00 146/84 H 03/24/25 07:48 68 90 Room Air 03/24/25 07:30 124/68 03/24/25 07:24 72 18 03/24/25 07:21 153/90 H 03/24/25 06:42 36.5 C 78 20 114/81 95 Room Air Laboratory Results Abnormal lab results 03/24/25 Range/Units 07:23 RBC 4.49 L (4.70-6.10) M/uL Hgb 13.8 L (14.0-18.0) g/dl Hct 40.1 L (42.0-52.0) % Neut # (Auto) 6.81 H (1.40-6.50) K/uL Lymph # (Auto) 0.86 L (1.20-3.40) K/uL [place] # (Auto) 0.98 H (0.11-0.59) K/uL BUN 26 H (6-23) mg/dl Creatinine 1.66 H (0.6-1.4) mg/dl Glucose 161 H (70-99(Fasting)) mg/dl Diagnostic Findings Duplex Scan Lower Extremity Artery 03/24/25 06:58 RIGHT LOWER EXTREMITY ARTERIAL DOPPLER ULTRASOUND CLINICAL HISTORY: Severe pain and swelling. COMPARISON STUDY: Right lower extremity venous Doppler ultrasound March 20, 2025. TECHNIQUE: Color and duplex Doppler sonography of the arterial system of the right lower extremity was performed. FINDINGS: There is triphasic flow within the right common femoral, superficial femoral and popliteal veins. Of note, there is monophasic flow with apparent reversal of diastolic flow within the proximal right posterior tibial artery. There is also monophasic flow within the right peroneal artery. There is triphasic flow within the distal right posterior tibial artery. There is biphasic flow within the right anterior tibial and dorsalis pedis vessels. The largest right calf fluid collection is depicted on the venous exam which will be reported separately. No elevated velocities were identified. IMPRESSION: Patent right lower extremity vessels. However, monophasic flow with absent/reversed diastolic flow within portions of the right posterior tibial and peroneal arteries. This vascular finding is nonspecific although could be related to the large right calf hematoma and could be seen in setting of compartment syndrome. Clinical correlation is recommended. ACT 112: Negative or not required by law. Electronically signed by: Higinio Mcdowell M.D. 03/24/2025 12:02 PM Venous Doppler Study 03/24/25 06:58 RIGHT LOWER EXTREMITY VENOUS DOPPLER CLINICAL HISTORY: Right lower extremity pain. COMPARISON STUDY: Right lower extremity venous Doppler ultrasound March 20, 2025. TECHNIQUE: Sonography of the deep venous system of the right lower extremity was performed. Compression and augmentation were evaluated. FINDINGS: The right common femoral, superficial femoral and popliteal veins were compressible. Augmentation was normal. Flow was shown within the deep calf vessels. No superficial thrombus is identified within the right lower extremity. Note is now made of a large complex hypoechoic fluid collection of the right calf which extends from the level of the knee to ankle, measuring 20 x 4 x 9 cm. This hematoma was not evident on prior ultrasound. A popliteal cyst was shown on prior study. IMPRESSION: 1. No evidence of deep venous thrombus within the right lower extremity. 2. Large complex fluid collection of the right calf, measuring 20 x 4 x 9 cm, which has developed since prior exam. This is consistent with a hematoma or hemorrhage within a popliteal cyst, possibly ruptured. Findings discussed with Dr. Mcmillan at time of dictation. This could be correlated with clinical evidence for compartment syndrome. ACT 112: Negative or not required by law. Electronically signed by: Higinio Mcdowell M.D. 03/24/2025 10:14 AM Code Status & VTE Plan VTE Prophylaxis Plan VTE Prophylaxis will be ordered: No Reason for no VTE drug order: Contraindicated PG Care Time/CCT Total # of Minutes Spent Total Time Spent with Patient: Total time spent is greater than 50% in coordination of care (as documented) at patient's floor/unit and/or counseling patient: Coding Level of Care Code 13421 INT INP/OBS CARE 2/55MIN Diagnoses Calf pain M79.661 Laterality: right Pain and swelling of right lower leg M79.661; M79.89 Ischemic cardiomyopathy I25.5 Diabetes mellitus E11.9 Palliative care encounter Z51.5 Vocal cord dysfunction J38.3 Hematoma of right lower leg S80.11XA (1) Calf pain Laterality: right Qualified Code(s): M79.661 - Pain in right lower leg
--- NOTE | 2025-03-24 12:03 | Ultrasound Report ---
RIGHT LOWER EXTREMITY ARTERIAL DOPPLER ULTRASOUND CLINICAL HISTORY: Severe pain and swelling. COMPARISON STUDY: Right lower extremity venous Doppler ultrasound March 20, 2025. TECHNIQUE: Color and duplex Doppler sonography of the arterial system of the right lower extremity wa s performed. FINDINGS: There is triphasic flow within the right common femoral, superficial femoral and popliteal veins. Of note, there is monophasic flow with apparent reversal of diastolic flow within the proximal right posterior tibial artery. There is also monophasic flow within the right peroneal artery. There is triphasic flow within the distal right posterior tibial artery. There is biphasic flow within the right anterior tibial and dorsalis pedis vessels. The largest right calf fluid collection is depicte d on the venous exam which will be reported separately. No elevated velocities were identified. IMPRESSION: Patent right lower extremity vessels. However, monophasic flow with absent/reversed diastolic flow wi thin portions of the right posterior tibial and peroneal arteries. This vascular finding is nonspecif ic although could be related to the large right calf hematoma and could be seen in setting of compart ment syndrome. Clinical correlation is recommended. ACT 112: Negative or not required by law. Electronically signed by: Higinio Mcdowell M.D. 03/24/2025 12:02 PM
--- NOTE | 2025-03-24 12:06 | Orthopedic Consultation ---
Date of Service March 24, 2025 Assessment & Plan (1) Pain and swelling of right lower leg: * Case/imaging reviewed and discussed with Dr Santiago * Right lower leg is certainly swollen and tender however history and exam less concerning for acute compartment syndrome given no significant pain with passive stretch as well as slow onset of symptoms * Suspect calf strain with hemorrhage exacerbated by Eliquis * Recommend strict elevation, would hold Eliquis * Per discussion with ED team patient to be admitted for close observation * Pain control * Remainder care per primary team * Will continue to follow History of Present Illness Reason for Consultation: . Right lower leg pain Requesting Physician: . . Patient is a 74y/o male right lower leg pain. PMH including ischemic cardiomyopathy, diabetes. Presents to hospital with ongoing right lower leg pain for the past several days. Per patient, pain started approximately 5 days ago as a mild pain in the right calf and posterior knee region. Initial evaluation in ED with ultrasound demonstrates Zuniga's cyst, superficial phlebitis, was prescribed Eliquis. However secondary to continued pain and swelling patient evaluation. Presents with significant pain throughout the right lower leg, swelling, subjective numbness. Current workup including repeat ultrasound demonstrating large complex fluid collection of the right calf which has developed since prior exam, consistent with hematoma or hemorrhage. Due to significant pain, ED contacted orthopedic team for evaluation secondary to concern of developing compartment syndrome. At time of exam patient lying in bed, no acute distress. Patient relatively comfortable throughout discussion and exam. Reports constant moderate to severe anterior right lower leg pain, swelling, difficulty with ankle range of motion. Denies tingling or numbness of the right foot. Allergies Allergy/AdvReac Type Severity Reaction Status Date / Time No Known Allergies Allergy Unverified 03/24/25 10:33 Home Medications Medication Instructions Recorded Confirmed Type amlodipine 10 mg tablet 10 mg PO DAILY 05/09/21 03/24/25 History famotidine 20 mg tablet 20 mg PO DAILY 05/09/21 03/24/25 History furosemide 20 mg tablet 20 mg PO 3XWK 05/09/21 03/24/25 History glimepiride 1 mg tablet 1 mg PO DAILY 05/09/21 03/24/25 History sacubitril 97 mg-valsartan 103 mg 1 tab PO BID 05/09/21 03/24/25 History tablet (Entresto) apixaban 5 mg tablet (Eliquis) 5 mg PO BID 03/24/25 03/24/25 History aspirin 81 mg tablet,delayed 81 mg PO DAILY 03/24/25 03/24/25 History release atorvastatin 40 mg tablet 40 mg PO DAILY 03/24/25 03/24/25 History carvedilol 12.5 mg tablet 12.5 mg PO BID 03/24/25 03/24/25 History dapagliflozin propanediol 10 mg 10 mg PO DAILY 03/24/25 03/24/25 History tablet (Farxiga) omega 6-qyw-vzw-fish oil 900 1 cap PO DAILY 03/24/25 03/24/25 History mg-1,400 mg capsule,delayed release pantoprazole 40 mg tablet,delayed 40 mg PO DAILY 03/24/25 03/24/25 History release semaglutide 7 mg tablet (Rybelsus) 7 mg PO DAILY 03/24/25 03/24/25 History tramadol 50 mg tablet 50 - 100 mg PO Q6H PRN Pain 03/24/25 03/24/25 History Past Med/Surg History Problem List (Updated 03/24/25 @ 12:01 by Antolin Estrada PA-C) Pain and swelling of right lower leg Ischemic cardiomyopathy Diabetes mellitus (Chronic) Palliative care encounter Vocal cord dysfunction "Evaluation by Dr. Taylor 02/20/2018" Social History Smoking Status: Former smoker Hx Alcohol Use: No Hx Substance Use: No Preferred Language: Maltese Beliefs That Will Affect Care: None Current Living Situation: Spouse Feels Safe at Home: Yes Assistive Devices: None Review of Systems All systems reviewed & are unremarkable except as noted in HPI & below. Physical Exam . * General: Alert and oriented, no acute distress * Constitutional: well-developed, well-nourished. * Respiratory: Normal respiratory effort, no distress * Gastrointestinal: No tenderness to palpation, no rigidity or guarding. * Skin: No rash or lesion. * Neurologic: Grossly normal * Musculoskeletal: Right lower leg with significant soft tissue swelling. Otherwise no open wounds, deformity, or other overlying skin changes to the right lower extremity noted. Lower leg compartments tight but compressible. Diffuse, significant TTP throughout the proximal calf, distal calf, anterior lower leg. No tenderness of the dorsal/plantar foot. AROM ankle flexion/extension intact but limited secondary to tightness and pain. Passive extension of toes without significant calf. Sensation intact plantar/dorsal foot. Brisk cap refill of toes. Results & Data Results & Data Laboratory Results . 03/24/25 07:23 WBC 8.76 RBC 4.49 L Hgb 13.8 L Hct 40.1 L MCV 89.3 MCH 30.7 MCHC 34.4 RDW Std Deviation 40.2 RDW Coeff of Jeff 12.2 Plt Count 154 MPV 10.2 Immature Gran % (Auto) 0.6 Neut % (Auto) 77.8 Lymph % (Auto) 9.8 [place] % (Auto) 11.2 Eos % (Auto) 0.3 Baso % (Auto) 0.3 Neut # (Auto) 6.81 H Lymph # (Auto) 0.86 L [place] # (Auto) 0.98 H Eos # (Auto) 0.03 Baso # (Auto) 0.03 Immature Gran # (Auto) 0.05 Sodium 138 Potassium 4.2 Chloride 106 Carbon Dioxide 23 Anion Gap 9 BUN 26 H Creatinine 1.66 H Est Cr Clr Drug Dosing 49.4 eGFR 43.53 BUN/Creatinine Ratio 15.7 Glucose 161 H Calcium 8.9 Total Bilirubin 0.8 AST 15 ALT 14 Alkaline Phosphatase 68 Total Creatine Kinase 123 Total Protein 6.7 Albumin 3.6 Globulin 3.1 Albumin/Globulin Ratio 1.2 Diagnostic Findings . Venous Doppler Study 03/24/25 06:58 RIGHT LOWER EXTREMITY VENOUS DOPPLER CLINICAL HISTORY: Right lower extremity pain. COMPARISON STUDY: Right lower extremity venous Doppler ultrasound March 20, 2025. TECHNIQUE: Sonography of the deep venous system of the right lower extremity was performed. Compression and augmentation were evaluated. FINDINGS: The right common femoral, superficial femoral and popliteal veins were compressible. Augmentation was normal. Flow was shown within the deep calf vessels. No superficial thrombus is identified within the right lower extremity. Note is now made of a large complex hypoechoic fluid collection of the right calf which extends from the level of the knee to ankle, measuring 20 x 4 x 9 cm. This hematoma was not evident on prior ultrasound. A popliteal cyst was shown on prior study. IMPRESSION: 1. No evidence of deep venous thrombus within the right lower extremity. 2. Large complex fluid collection of the right calf, measuring 20 x 4 x 9 cm, which has developed since prior exam. This is consistent with a hematoma or hemorrhage within a popliteal cyst, possibly ruptured. Findings discussed with Dr. Mcmillan at time of dictation. This could be correlated with clinical evidence for compartment syndrome. ACT 112: Negative or not required by law. Electronically signed by: Higinio Mcdowell M.D. 03/24/2025 10:14 AM PG Care Time/CCT Total # of Minutes Spent Total Time Spent with Patient: Total time spent is greater than 50% in coordination of care (as documented) at patient's floor/unit and/or counseling patient: [place] [address] IN/OBS CONSULT LVL 4,60M Patient Type New History Problem Focused Exam Problem Focused Medical Decision Making Moderate Complexity Diagnoses Pain and swelling of right lower leg M79.661; M79.89
[2025-03-24] MEDS ORDERED: GLUCOSE 40% GEL 15 GM TUBE PO PRN (13:03)
[2025-03-24] MEDS ORDERED: DEXTROSE 50% 50 ML SYRINGE IV PRN (13:03)
[2025-03-24] MEDS ORDERED: CARBOHYDRATES FOR HYPOGLYCEMIA PO PRN (13:03)
[2025-03-24] MEDS ORDERED: ONDANSETRON INJ 2 MG/ML 2 ML VIAL IV PRN (13:03)
[2025-03-24] MEDS ORDERED: GLUCAGON FOR INJ 1 MG VIAL SQ PRN (13:03)
[2025-03-24] MEDS ORDERED: GLUCOSE 10 TAB/TUBE PO PRN (13:03)
[2025-03-24] MEDS: SODIUM CHLORIDE 0.9% 500 ML IV SCH (13:51)
[2025-03-24] MEDS: INSULIN ASPART PER UNIT CHARGE SC SCH (16:59)
[2025-03-24] MEDS: MoRPHine SULFATE 2 MG/ML CARP IV PRN (17:00)
--- NOTE | 2025-03-25 07:36 | Orthopedic Progress Note ---
Date of Service March 25, 2025 Assessment & Plan (1) Hematoma of right lower leg: Plan: 74-year-old gentleman admitted with right lower extremity swelling likely some degree of a calf strain and then bleeding due to Eliquis use. He stable. There is no signs of compartment syndrome. He does have a swollen leg but no compartment issues. Plan: I would recommend continued elevation and ice. I think it be best to hold his Eliquis. He is got no DVT and I think the Eliquis has made things worse. He can be mobilizing weight-bear as tolerated. Elevate right leg is much as possible. Any orthopedic questions can be directly [phone]. (2) Calf pain: (3) Pain and swelling of right lower leg: Admission and Anticipated Discharge Date Admission Date: March 24, 2025 Subjective 74-year-old gentleman admitted with the right lower extremity swelling. There is been no real interval change since admission. Is diffusely swollen and uncomfortable leg. He is able to wiggle his toes and his foot without much pain. Does have discomfort to palpation. Physical Exam Physical Exam: Physical nation is a pleasant middle-age male. Lying in bed looks pretty comfortable. Examination of the right leg reveals him to be holding it at a sli ghtly flexed position. He has got diffuse swelling from his knee down to his foot. There is no real focal areas of swelling just diffuse. He can dorsiflex and plantarflex his foot and toes limited by the swelling. Not particularly painful. He is neurologically intact. Results & Data Vital Signs (Past 12 Hours) Vital Signs Temp Pulse Pulse Resp BP Pulse Ox O2 Del Method 03/25/25 03:10 37.0 C 66 18 126/75 93 Room Air 03/24/25 22:49 37.0 C 70 18 96/58 L 93 Room Air 03/24/25 21:50 65 03/24/25 19:35 36.6 C 67 18 149/89 H 95 Room Air Laboratory Results Labs are pending. (2) Calf pain Laterality: right Qualified Code(s): M79.661 - Pain in right lower leg
[2025-03-25 07:39] LABS: Hematocrit (blood only) 36.8 % (42.0-52.0); Hemoglobin 12.8 g/dl (14.0-18.0); Mean Corpuscular Hemoglobin 31.4 pg (25.0-34.0); Mean Corpuscular Volume 90.4 fL (80.0-100.0); Platelet Count 174 K/uL (130-400); RDW Standard Deviation 40.2 fL (36.4-46.3); Red Blood Count 4.07 M/uL (4.70-6.10); White Blood Count 8.10 K/ul (4.8-10.8)
[2025-03-25 07:55] LABS: Anion Gap 8.0 (3-11); Blood Urea Nitrogen 30.0 mg/dl (6-23); Calcium 8.9 mg/dl (8.6-10.3); Carbon Dioxide 23.0 mmol/L (21-32); Chloride 107.0 mmol/L (98-107); Creatinine Clr Calc Pharmacy 48.2 ml/min; Glucose 113.0 mg/dl (70-99(Fasting)); Potassium 4.3 mmol/L (3.5-5.1); Sodium 138.0 mmol/L (136-145)
[2025-03-25] MEDS: FAMOTIDINE 20 MG TAB PO SCH (08:34)
[2025-03-25] MEDS: POLYETHYLENE (MIRALAX) 17 GM PACK PO SCH (12:19)
[2025-03-25] MEDS: DOCUSATE SODIUM 100 MG CAP PO SCH (12:22)
--- NOTE | 2025-03-25 13:48 | Hospitalist Progress Note ---
Date of Service March 25, 2025 Assessment & Plan (1) Calf pain: (2) Pain and swelling of right lower leg: (3) Ischemic cardiomyopathy: (4) Diabetes mellitus: (5) Palliative care encounter: (6) Vocal cord dysfunction: (7) Hematoma of right lower leg: Plan This is a 74-year-old male with a history of coronary artery disease status post LAD stents, ischemic cardiomyopathy status post AICD, qjk-rkhvssc-dgmtvlocu diabetes mellitus type 2, hypertension, hyperlipidemia, single right kidney who presents with right calf pain. He was diagnosed with a right superficial vein thrombosis, no DVT and was started on Eliquis 2 days ago. He comes back with increasing pain and swelling. Today's ultrasound shows a large complex fluid collection of the right calf, likely hematoma. #Right calf hematoma in the setting of being on Eliquis Continue to hold Eliquis Possibility of compartment syndrome is being entertained. Orthopedics consulted who was less concerned for acute compartment syndrome as the patient had no pain with passive stretch. Orthopedics involved Treat pain Elevate right leg and ice Repeat venous ultrasound was assuring for no DVT #Coronary artery disease status post LAD stents Continue Coreg Hold Lasix as his mucous membranes are dry Hold Farxiga, semaglutide, Lipitor #Single right kidney Per patient, creatinine is at baseline #GERD continue Protonix #Diabetes mellitus type 2 Start sliding scale insulin VTE prophylaxis: No SCD as it will not be tolerated well. No chemical prophylaxis since calf hematoma Full code Admission and Anticipated Discharge Date Admission Date: March 24, 2025 Subjective Patient feels well overall. However he is still in quite a bit of pain, requiring IV narcotics. He has not been able to walk yet. Review of Systems Review of Systems: All systems reviewed & are unremarkable except as noted in Subjective Physical Exam Physical Exam: General: Awake, conversant. Dry mucous membranes Heart: S1, S2/regular rate and rhythm, no murmur rubs or gallops Lungs: Clear to auscultation bilaterally. Normal effort Abdomen: Soft/nontender/nondistended. No hepatosplenomegaly Extremities: No clubbing/cyanosis. Right calf swelling and pain. Right ankle swelling as well. Behavior: Appropriate, cooperative Results & Data Results & Data Vital Signs (Past 12 Hours) Vital Signs Temp Pulse Pulse Resp BP Pulse Ox O2 Del Method 03/25/25 11:39 36.8 C 65 18 132/77 96 Room Air 03/25/25 07:45 36.8 C 67 18 155/91 H 96 Room Air 03/25/25 07:00 63 03/25/25 03:10 37.0 C 66 18 126/75 93 Room Air Laboratory Results Abnormal lab results 03/24/25 03/24/25 03/25/25 Range/Units 16:13 20:23 06:43 RBC 4.07 L (4.70-6.10) M/uL Hgb 12.8 L (14.0-18.0) g/dl Hct 36.8 L (42.0-52.0) % BUN 30 H (6-23) mg/dl Creatinine 1.69 H (0.6-1.4) mg/dl Glucose 113 H (70-99(Fasting)) mg/dl POC Glucose 132 H 131 H (70-99) mg/dl 03/25/25 03/25/25 Range/Units 07:24 11:15 RBC (4.70-6.10) M/uL Hgb (14.0-18.0) g/dl Hct (42.0-52.0) % BUN (6-23) mg/dl Creatinine (0.6-1.4) mg/dl Glucose (70-99(Fasting)) mg/dl POC Glucose 115 H 159 H (70-99) mg/dl PG Care Time/CCT Total # of Minutes Spent Total Time Spent with Patient: Total time spent is greater than 50% in coordination of care (as documented) at patient's floor/unit and/or counseling patient: Coding Level of Care Code 79256 SUB INP/OBS CARE 2/35MIN Diagnoses Calf pain M79.661 Laterality: right Pain and swelling of right lower leg M79.661; M79.89 Ischemic cardiomyopathy I25.5 Diabetes mellitus E11.9 Palliative care encounter Z51.5 Vocal cord dysfunction J38.3 Hematoma of right lower leg S80.11XA (1) Calf pain Laterality: right Qualified Code(s): M79.661 - Pain in right lower leg
[2025-03-26 06:16] LABS: Hematocrit (blood only) 35.9 % (42.0-52.0); Hemoglobin 12.5 g/dl (14.0-18.0); Mean Corpuscular Hemoglobin 30.6 pg (25.0-34.0); Mean Corpuscular Volume 88.0 fL (80.0-100.0); Platelet Count 184 K/uL (130-400); RDW Standard Deviation 38.8 fL (36.4-46.3); Red Blood Count 4.08 M/uL (4.70-6.10); White Blood Count 6.75 K/ul (4.8-10.8)
[2025-03-26 06:49] LABS: Anion Gap 8.0 (3-11); Blood Urea Nitrogen 29.0 mg/dl (6-23); Calcium 8.8 mg/dl (8.6-10.3); Carbon Dioxide 22.0 mmol/L (21-32); Chloride 110.0 mmol/L (98-107); Creatinine Clr Calc Pharmacy 55.8 ml/min; Glucose 131.0 mg/dl (70-99(Fasting)); Potassium 4.2 mmol/L (3.5-5.1); Sodium 140.0 mmol/L (136-145)
--- NOTE | 2025-03-26 10:21 | Orthopedic Progress Note ---
Date of Service March 26, 2025 Assessment & Plan (1) Hematoma of right lower leg: Plan: 74-year-old gentleman admitted with right lower extremity swelling with some degree of likely gastroc strain and some bleeding. He is improving. This should gradually improve with time. He can start to increase activities as tolerated but really should stick to strict elevation is much as possible. Foot dorsiflexion and plantarflexion and toe motion is good. I recommend continue to hold any anticoagulation other than baby aspirin may be twice a day would be reasonable. Likely 24 more hours of observation and anticipate he can probably be okay to go home tomorrow. Any orthopedic questions can be directed me [phone]. (2) Calf pain: (3) Pain and swelling of right lower leg: Admission and Anticipated Discharge Date Admission Date: March 25, 2025 Subjective 74-year-old gentleman admitted with significant right lower extremity swelling. He is feeling quite a bit better this morning. His leg pain is improving and more comfortable. No new complaints. Physical Exam Physical Exam: Physical nation was a pleasant middle-age male. He is lying in bed with his leg elevated and looks comfortable. Talking to family. Examination the right leg reveals diffuse swelling of the entire leg below the knee. It is certainly less swollen than it was 24 hours ago. Seems to be improving. Can dorsiflex and plantarflex his foot reasonably well. Minimal pain with this. He is neurologically intact. Results & Data Vital Signs (Past 12 Hours) Vital Signs Temp Pulse Pulse Resp BP Pulse Ox O2 Del Method 03/26/25 07:39 36.7 C 64 18 133/78 96 Room Air 03/26/25 07:33 59 L 03/26/25 03:59 36.8 C 64 18 143/73 H 96 Room Air 03/25/25 23:17 36.4 C L 64 18 99/58 L 93 Room Air (2) Calf pain Laterality: right Qualified Code(s): M79.661 - Pain in right lower leg
--- NOTE | 2025-03-26 10:54 | Hospitalist Progress Note ---
Date of Service March 26, 2025 Assessment & Plan (1) Calf pain: (2) Pain and swelling of right lower leg: (3) Ischemic cardiomyopathy: (4) Diabetes mellitus: (5) Palliative care encounter: (6) Vocal cord dysfunction: (7) Hematoma of right lower leg: Plan This is a 74-year-old male with a history of coronary artery disease status post LAD stents, ischemic cardiomyopathy status post AICD, ske-wovniqj-laiuqutty diabetes mellitus type 2, hypertension, hyperlipidemia, single right kidney who presents with right calf pain. He was diagnosed with a right superficial vein thrombosis, no DVT and was started on Eliquis 2 days ago. He comes back with increasing pain and swelling. Today's ultrasound shows a large complex fluid collection of the right calf, likely hematoma. #Right calf hematoma in the setting of being on Eliquis Continue to hold Eliquis Possibility of compartment syndrome was entertained. Orthopedics consulted who was less concerned for acute compartment syndrome as the patient had no pain with passive stretch. Orthopedics involved Treat pain. Encouraged to titrate off of morphine. Patient is clinically better today with less swelling, more ability to dorsiflex and plantarflex Elevate right leg and ice Repeat venous ultrasound was assuring for no DVT Awaiting PT/OT Orthopedics recommended starting aspirin 81 mg twice daily #Coronary artery disease status post LAD stents Continue Coreg Hold Lasix as his mucous membranes are dry Hold Farxiga, semaglutide, Lipitor #Single right kidney Per patient, creatinine is at baseline #GERD continue Protonix #Diabetes mellitus type 2 Start sliding scale insulin VTE prophylaxis: No SCD as it will not be tolerated well. No chemical prophylaxis since calf hematoma. Orthopedics recommended starting baby aspirin twice daily Full code Disposition: Likely discharge tomorrow once morphine needs improved, PT/OT evaluation completed and patient is able to ambulate better Admission and Anticipated Discharge Date Admission Date: March 25, 2025 Subjective Patient feels better overall. Says that the swelling has improved ever since they were finally able to elevate the leg. He has used morphine quite a bit yesterday. But he anticipates not needing as much morphine today. Review of Systems Review of Systems: All systems reviewed & are unremarkable except as noted in Subjective Physical Exam Physical Exam: General: Awake, conversant. Heart: S1, S2/regular rate and rhythm, no murmur rubs or gallops Lungs: Clear to auscultation bilaterally. Normal effort Abdomen: Soft/nontender/nondistended. No hepatosplenomegaly Extremities: No clubbing/cyanosis. Right calf swelling and pain. Right ankle swelling as well. Improving. Better dorsiflexion and plantarflexion today. Behavior: Appropriate, cooperative Results & Data Results & Data Vital Signs (Past 12 Hours) Vital Signs Temp Pulse Pulse Resp BP Pulse Ox O2 Del Method 03/26/25 07:39 36.7 C 64 18 133/78 96 Room Air 03/26/25 07:33 59 L 03/26/25 03:59 36.8 C 64 18 143/73 H 96 Room Air 03/25/25 23:17 36.4 C L 64 18 99/58 L 93 Room Air PG Care Time/CCT Total # of Minutes Spent Total Time Spent with Patient: Total time spent is greater than 50% in coordination of care (as documented) at patient's floor/unit and/or counseling patient: Coding Level of Care Code 65767 SUB INP/OBS CARE 2/35MIN Diagnoses Calf pain M79.661 Laterality: right Pain and swelling of right lower leg M79.661; M79.89 Ischemic cardiomyopathy I25.5 Diabetes mellitus E11.9 Palliative care encounter Z51.5 Vocal cord dysfunction J38.3 Hematoma of right lower leg S80.11XA (1) Calf pain Laterality: right Qualified Code(s): M79.661 - Pain in right lower leg
[2025-03-26] MEDS: ACETAMINOPHEN 325 MG TAB PO PRN (13:23)
[2025-03-26] MEDS: ASPIRIN 81 MG ECTAB PO SCH (21:48)
[2025-03-27 06:53] LABS: Hematocrit (blood only) 36.2 % (42.0-52.0); Hemoglobin 12.4 g/dl (14.0-18.0); Mean Corpuscular Hemoglobin 31.1 pg (25.0-34.0); Mean Corpuscular Volume 90.7 fL (80.0-100.0); Platelet Count 207 K/uL (130-400); RDW Standard Deviation 38.9 fL (36.4-46.3); Red Blood Count 3.99 M/uL (4.70-6.10); White Blood Count 6.84 K/ul (4.8-10.8)
[2025-03-27 07:15] LABS: Anion Gap 6.0 (3-11); Blood Urea Nitrogen 27.0 mg/dl (6-23); Calcium 8.9 mg/dl (8.6-10.3); Carbon Dioxide 24.0 mmol/L (21-32); Chloride 111.0 mmol/L (98-107); Creatinine Clr Calc Pharmacy 52.5 ml/min; Glucose 124.0 mg/dl (70-99(Fasting)); Potassium 4.7 mmol/L (3.5-5.1); Sodium 141.0 mmol/L (136-145)
--- NOTE | 2025-03-27 07:40 | Orthopedic Progress Note ---
Date of Service March 27, 2025 Assessment & Plan (1) Hematoma of right lower leg: Plan: 74-year-old gentleman admitted with diffuse right leg swelling likely related to a gastroc strain and bleeding. He significant improved over the past 48 hours. Plan: My recommendation at this point would be continued elevation when possible. Working to get him a cam walking boot for weightbearing for the next 2 weeks to limit the motion and stress on his gastroc muscle. I recommend avoiding anticoagulation as she has got no signs of deep thrombosis. I do think he benefit from a calf high Liborio stocking and I would recommend calf I Liborio stocking to his right leg for the next month. He should be able to follow-up with his local doctor. Any orthopedic questions can direct me [phone]. (2) Calf pain: (3) Pain and swelling of right lower leg: Admission and Anticipated Discharge Date Admission Date: March 25, 2025 Subjective Right leg patient is a 74-year-old gentleman.Admitted with right leg swelling significantly better in the past 2 days. Pain significantly improved. Has not been up and not walking much yet. Physical Exam Physical Exam: Physical examination was a pleasant middle-age male. Lying bed looks pretty comfortable. Examination of the right leg reveals diffuse swelling but improved. The tenseness is significantly improved. Can dorsiflex and plantarflex his foot appropriately with minimal pain. He can flex extend his toes without any pain. He is neurologically intact. Results & Data Vital Signs (Past 12 Hours) Vital Signs Temp Pulse Pulse Resp BP Pulse Ox O2 Del Method 03/27/25 07:04 36.7 C 61 20 142/77 H 97 Room Air 03/27/25 04:12 36.7 C 57 L 18 158/91 H 95 Room Air 03/26/25 22:35 36.7 C 59 L 20 130/72 95 Room Air 03/26/25 21:51 59 L 03/26/25 19:45 Room Air (2) Calf pain Laterality: right Qualified Code(s): M79.661 - Pain in right lower leg
--- NOTE | 2025-03-27 09:51 | Hospitalist Progress Note ---
Date of Service March 27, 2025 Assessment & Plan (1) Calf pain: Plan: -right gastrocnemius strain and bleeding -OPAL stocking -asa BID -d/c'd eliquis -no DVT -CAM boot pending -PT evalaution (2) Ischemic cardiomyopathy: Plan: -con't coreg (3) Diabetes mellitus: Plan: -RISS Plan This is a 74-year-old male with a history of coronary artery disease status post LAD stents, ischemic cardiomyopathy status post AICD, [id number]-vjaydxtij diabetes mellitus type 2, hypertension, hyperlipidemia, single right kidney who presents with right calf pain. He was diagnosed with a right superficial vein thrombosis, no DVT and was started on Eliquis 2 days ago. He comes back with increasing pain and swelling. Today's ultrasound shows a large complex fluid collection of the right calf, likely hematoma. # Disposition: Likely discharge once CAM boot arranged, PT/OT evaluation completed and patient is able to ambulate better Admission and Anticipated Discharge Date Admission Date: March 25, 2025 Subjective No events overnight. Pt states he has less pain in his calf. Review of Systems Review of Systems: CONST: Negative for fever, body aches and chills. HENT: Negative for neck pain/stiffness, headache, congestion, sore throat, swelling. EYES: Negative for discharge/pain or vision changes. RESP: Negative for cough/hemoptysis and shortness of breath. CV: Negative chest pain, difficulty breathing, palpitations. ABD: Negative pain, nausea, vomiting. : Negative increase frequency, dysuria, blood in urine or stool. MUSC: Negative for muscle aches, edema. SKIN: Negative rash, lesions/sores. NEURO: Negative headache, dizziness, weakness. Physical Exam Physical Exam: GENERAL APPEARANCE NAD, activity normal for age, well developed/ well nourished, no cyanosis, pallor, or diaphoresis. EYES lids/conjunctiva normal. EARS/NOSE/THROAT Mucous membranes moist, nares normal, lips/teeth normal uvula midline without oral pharyngeal erythema, exudate or swelling TMs normal bilaterally. No lymphangitis/lymphedema. HEAD/NECK normocephalic atraumatic, no facial trauma, neck is supple. RESPIRATORY respiratory effort normal, speaks in full sentences, no tripod position, no accessory muscle use. Lungs clear to auscultation without rhonchi, wheezes, rales CARDIAC Regular rate and rhythm, no edema. ABDOMINAL Soft, ND/NT. No evidence of fluid wave. No pulsatile masses on exam, rebound tenderness, Merino sign or pain over Mcburney's point. MUSCLES/EXTREMITIES No abnormal range of motion, no swelling. SKIN Warm, pink and dry. No rashes, dermatoses, petechiae or lesions. NEUROLOGICAL Speech is clear and appropriate. Normal level of consciousness. Gait and coordination are normal. 5/5 strength in all extremities. PSYCH Normal mood and affect. Judgement/competence is appropriate Results & Data Results & Data Vital Signs (Past 12 Hours) Vital Signs Temp Pulse Pulse Resp BP Pulse Ox O2 Del Method 03/27/25 07:54 59 L 03/27/25 07:04 36.7 C 61 20 142/77 H 97 Room Air 03/27/25 04:12 36.7 C 57 L 18 158/91 H 95 Room Air 03/26/25 22:35 36.7 C 59 L 20 130/72 95 Room Air 03/26/25 21:51 59 L PG Care Time/CCT Total # of Minutes Spent Total Time Spent with Patient: Total time spent is greater than 50% in coordination of care (as documented) at patient's floor/unit and/or counseling patient: Coding Level of Care Code 05005 SUB INP/OBS CARE 2/35MIN Diagnoses Calf pain M79.661 Laterality: right Ischemic cardiomyopathy I25.5 Diabetes mellitus E11.9 (1) Calf pain Laterality: right Qualified Code(s): M79.661 - Pain in right lower leg
[2025-03-27] MEDS: VALSARTAN/SACUBITRIL 103/97MG TAB PO SCH (10:10)
--- NOTE | 2025-03-27 16:22 | Discharge Summary ---
Discharge Summary Date of Service March 27, 2025 Principal Dx & Hospital Course #1 = Principal Diagnosis (1) Calf pain: -right gastrocnemius strain and bleeding -OPAL stocking -asa BID -d/c'd eliquis -no DVT -CAM boot pending -PT evalaution (2) Ischemic cardiomyopathy: -con't coreg (3) Diabetes mellitus: -RISS Plan This is a 74-year-old male with a history of coronary artery disease status post LAD stents, ischemic cardiomyopathy status post AICD, cqd-emulwfh-oasyntywe diabetes mellitus type 2, hypertension, hyperlipidemia, single right kidney who presents with right calf pain. He was diagnosed with a right superficial vein thrombosis, no DVT and was started on Eliquis 2 days ago. He comes back with increasing pain and swelling. Today's ultrasound shows a large complex fluid collection of the right calf, likely hematoma. 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 4 days ago, he was evaluated by Dr. Caruso who ordered an ultrasound of his right leg. The ultrasound was done 2 days ago and had showed no DVT but a superficial vein thrombosis. He asked him to speak to his PCP. His PCP started him on Eliquis which he has been taking since Thursday. He came to the ER today because his pain got worse and the swelling got worse as well. Today he had a repeat ultrasound done of his right lower extremity that showed a hematoma/hemorrhage possibly from popliteal cyst rupture. The ED physician consulted orthopedics due to concerns of compartment syndrome. Orthopedics ruled out compartment syndrome and requested that the patient be admitted for observation and pain management. Screening tests show stable H&H, mild elevated creatinine of 1.6 (patient says his baseline creatinine is between 1.5-1.6). Venous duplex ultrasound shows a large complex fluid collection of the right calf, measuring 20 x 4 x 9 cm, consistent with hematoma or hemorrhage within a popliteal cyst, possibly ruptured. Discharge Exam GENERAL APPEARANCE NAD, activity normal for age, well developed/ well nourished, no cyanosis, pallor, or diaphoresis. EYES lids/conjunctiva normal. EARS/NOSE/THROAT Mucous membranes moist, nares normal, lips/teeth normal uvula midline without oral pharyngeal erythema, exudate or swelling TMs normal bilaterally. No lymphangitis/lymphedema. HEAD/NECK normocephalic atraumatic, no facial trauma, neck is supple. RESPIRATORY respiratory effort normal, speaks in full sentences, no tripod position, no accessory muscle use. Lungs clear to auscultation without rhonchi, wheezes, rales CARDIAC Regular rate and rhythm, no edema. ABDOMINAL Soft, ND/NT. No evidence of fluid wave. No pulsatile masses on exam, rebound tenderness, Merino sign or pain over Mcburney's point. MUSCLES/EXTREMITIES No abnormal range of motion, no swelling. SKIN Warm, pink and dry. No rashes, dermatoses, petechiae or lesions. NEUROLOGICAL Speech is clear and appropriate. Normal level of consciousness. Gait and coordination are normal. 5/5 strength in all extremities. PSYCH Normal mood and affect. Judgement/competence is appropriate Discharge Plan Discharge Items Patient Disposition: Home - Self-Care Reason For Visit: RIGHT CALF PAIN Discharge Diagnosis: gastrocnemius strain, bleed Condition on Discharge: Fair Activity: Resume your previous activity Non-emergency contact: Primary Care Provider Call non-emergency contact if: you have any medication questions Follow-up/Referrals: Dayday Mchugh D.OChayo [Primary Care Provider] - Diet: Carb Consistent or DM2 Addtl Attending Provider Instructions: Follow with PMD in 2 weeks Pending Studies at Discharge: No Stand-Alone Forms: [facility], Smoking Cessation Medications and DC Order Prescriptions: New aspirin 81 mg Tablet,Delayed Release (Dr/Ec) 81 mg PO BID Qty: 60 0RF Continued glimepiride 1 mg Tablet 1 mg PO DAILY famotidine 20 mg Tablet 20 mg PO DAILY amlodipine 10 mg Tablet 10 mg PO DAILY furosemide 20 mg Tablet 20 mg PO [id number] Patient Comments: Mon/Wed/Fri Rx Instructions: Mon/Thu/Fri Entresto 97-103 mg Tablet 1 tab PO BID atorvastatin 40 mg tablet 40 mg PO DAILY carvedilol 12.5 mg tablet 12.5 mg PO BID tramadol 50 mg tablet 50 - 100 mg PO Q6H PRN (Reason: Pain) pantoprazole 40 mg tablet,delayed release (DR/EC) 40 mg PO DAILY omega 3-lbp-nfg-fish oil 900-1,400 mg Capsule,Delayed Release(Dr/Ec) 1 cap PO DAILY Eliquis 5 mg tablet 5 mg PO BID dapagliflozin propanediol [Farxiga] 10 mg tablet 10 mg PO DAILY Rybelsus 7 mg tablet 7 mg PO DAILY Discontinued aspirin 81 mg Tablet,Delayed Release (Dr/Ec) 81 mg PO DAILY Discharge Orders: Discharge Order (Routine); Ordered 03/27/25 Ordered By: Malcolm James Admission Data Admit Date/Time: 03/25/25 11:35 Attending Provider: Malcolm James Admit Provider: Julienne Harrell Primary Care Provider: Dayday Mchugh Other Providers: Kenneth Santiago; Julienne Harrell Hospital Stay Data Consultations 03/24/25 10:27 Consult Orthopedic Surgery Stat 03/24/25 10:58 ED Decision to Admit Stat 03/24/25 14:34 Consult Orthopedic Surgery Routine Diagnostic Imagining Performed 03/24/25 06:58 US arterial duplex LE RT Stat US venous doppler LE RT Stat Pending Results Patient Have Any Pending Studies at Discharge: No Discharge Instructions Given to Patient (Per Discharging Provider) Follow with PMD in 2 weeks Total Time Total Time Spent Total Time Spent (In Minutes): 50 Coding Level of Care Code 22117 INP/OBS DISCH >30 MIN Diagnoses Calf pain M79.661 Laterality: right Ischemic cardiomyopathy I25.5 Diabetes mellitus E11.9
[2025-03-27 17:07] VITALS: RESP 21
[2025-03-27 17:11] VITALS: BP 114/70; PULSE 63; TEMP 97.7; O2SAT 94
== END 2025-03-27 18:17 | disposition home or self-care (01) | DRG 563 ==
LOC: SUATTDRO → 2S 06:35 → ED 06:35 → 2S 14:56 → SUATTDRO 03-25 11:35